=== PATIENT | female | born 1990 | race Caucasian/White ===

== ENCOUNTER 2017-08-12 19:45 | Emergency (ER) | payer SELFPAY ==
[~2017-08-12 19:45] MED LIST: CIPRO500 M1 PO; HYDROCODON-ACE1 EAC2 PO
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
[2017-08-12] MEDS ORDERED: CYCLOBENZAPRINE10 M1 PO (22:21)
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
[2017-08-12 22:25] VITALS: BP 120/73
[2017-08-12] MEDS ORDERED: ENDOCET 5-3251 EACH PO (22:28)
== END 2017-08-12 22:28 ==
LOC: ERH 19:45
DX: S29.012A Strain of muscle and tendon of back wall of thorax, initial encounter (principal); V49.40XA Driver injured in collision with unspecified motor vehicles in traffic accident, initial encounter; Y92.9 Unspecified place or not applicable
CPT/HCPCS: 72070; 81025